=== PATIENT | female | born 1955 | race Caucasian/White ===

== ENCOUNTER 2017-09-20 08:19 | Day surgery (SDC) | payer BC ==
[2017-09-19 17:09] VITALS: BMI 23.0
[2017-09-20] MEDS ORDERED: BUPIVACAINE HCL/PF 0.5% (5MG/ML) 10 ML VIAL ONE (12:13)
[2017-09-20] MEDS ORDERED: DEXAMETHASONE SOD PHOSPHATE 4 MG/1 ML VIAL ONE (12:13)
[2017-09-20] MEDS ORDERED: LIDOCAINE HCL 1%, 10 MG/ML (20ML VIAL) ONE (12:13)
[2017-09-20] MEDS ORDERED: MIDAZOLAM HCL 2 MG/2 ML SINGLE DOSE VIAL ONE ×2 (12:49)
[2017-09-20] MEDS ORDERED: PROPOFOL 20 ML ONE ×2 (12:56→12:59)
[2017-09-20] MEDS ORDERED: ceFAZolin SODIUM 1 GM VIAL IVPB ONE (12:57)
[2017-09-20] MEDS ORDERED: LIDOCAINE HCL 1%, 10 MG/ML (20ML VIAL) NR ONE (13:07)
[2017-09-20] MEDS ORDERED: BUPIVACAINE HCL/PF 0.5% (5MG/ML) 10 ML VIAL IJ ONE ×2 (13:07→14:18)
[2017-09-20] MEDS ORDERED: BACITRACIN 50,000 UNITS VIAL TP ONE (13:50)
[2017-09-20] MEDS ORDERED: DEXAMETHASONE SOD PHOSPHATE 4 MG/1 ML VIAL IM ONE (14:18)
[2017-09-20 15:16] VITALS: TEMP 98.2
[2017-09-20 16:07] VITALS: BP 125/69; PULSE 56
--- NOTE | 2017-09-20 17:21 | OP ---
DATE OF OPERATION: 09/20/2017 PROCEDURE: Left foot Minor bunionectomy. PREOPERATIVE DIAGNOSIS: Hallux valgus, left foot. POSTOPERATIVE DIAGNOSIS: Hallux valgus, left foot. ANESTHESIA: Local, IV sedation. SURGEON: Vicenta Cameron DPM STEAMTABLE WORKER: HEMOSTASIS: Pneumatic left ankle tourniquet. ESTIMATED BLOOD LOSS: 10 mL MATERIALS: Vicryl 3-0, Vicryl 4-0, Vicryl 5-0, nylon 4-0. PATHOLOGY: Bone. DESCRIPTION OF PROCEDURE: The patient was brought to the operating room and placed on the operating room table in the supine position. Pneumatic ankle tourniquet was then placed on the patient's left ankle. Following IV sedation, local anesthesia was obtained utilizing 20 mL 1:1 mixture of 1% lidocaine plain and 0.5% Marcaine plain. The foot was then scrubbed, prepped, and draped in the usual aseptic manner. An Esmarch bandage was then utilized to exsanguinate the patient's left foot, and the tourniquet was inflated. Attention was then directed to the dorsal aspect of the 1st metatarsal head of the left foot, where a 4-cm linear longitudinal incision was made medial and parallel to the tendon and its tensor hallucis longus tendon. The incision was then deepened through subcutaneous tissue using sharp and blunt dissection. Care was taken to identify and retract all vital neural and vascular structures. All bleeders were ligated and cauterized as necessary. At this time, an inverted L-type capsulotomy was performed over the dorsal aspect of the 1st metatarsophalangeal joint. The periosteal and capsular structures were then carefully dissected free and reflected medially and laterally, exposing the head of the 1st metatarsal. Utilizing a sagittal saw, the dorsal and medial prominences were resected and passed from the operative field. The hip was then externally rotated and the knee flexed so that the medial surface of the foot faced superior for better visualization for the Minor procedure. A ullwaud-ojh-ogzmign V-type osteotomy was then created utilizing a sagittal bone saw. The apex pointing distally with the dorsal arm longer than the plantar arm to accommodate fixation. The capital fragment was then shifted laterally into an improved position, was impacted on the head of the metatarsal shaft. A 0.045-inch K-wire was then driven across the osteotomy site to provide temporary fixation. The remaining medial bone at this time a 2.4 x 16-mm K-wire was inserted in the AO technique across the osteotomy site, and another 2.4 x 16-mm K-wire was inserted across the osteotomy site in the AO technique. The remaining medial bone trough as well as all rough edges of bone were resected and smoothed using power equipment, and bunion deformity was noted to be vastly improved. The wound was then flushed with copious amounts of sterile saline. Attention was then directed to the 2nd digit where a longitudinal, teardrop incision was made over the dorsal aspect of the proximal interphalangeal joint of the 2nd digit. The incision was then deepened through the subcutaneous tissue with care to retract all neurovascular structures. All bleeders were ligated and cauterized as necessary. A transverse tenotomy and capsulotomy were performed to the proximal interphalangeal joint of the 2nd digit of the left foot. The head of the proximal phalanx was then freed of all soft tissue attachments and resected utilizing a sagittal bone saw in a transverse resection. The proximal phalanx head was then passed from the operative field and was sent to Pathology. Attention was then directed to the 3rd digit where a 2-cm dorsal, teardrop, longitudinal incision was made over the dorsal aspect of the proximal interphalangeal joint of the 3rd digit. The incision was then deepened through the subcutaneous tissue with care to retract all neurovascular structures. All bleeders were cauterized and ligated. A transverse tenotomy and capsulotomy were performed to the proximal interphalangeal joint of the 3rd digit of the left foot. The head of the proximal phalanx was then resected in a transverse fashion utilizing a sagittal saw and taken from the operative field and sent to Pathology. Attention was then directed to the 4th digit of the left foot where a 2-cm teardrop, longitudinal incision was made over the dorsal aspect of the proximal interphalangeal joint of the digit. Incision was deepened through the subcutaneous tissue with care to retract all neurovascular structures. All bleeders were cauterized and ligated. A transverse tenotomy and capsulotomy were performed to the proximal interphalangeal joint of the 4th digit of the left foot. Head of the proximal phalanx was then freed of all soft tissue attachments and resected in a transverse fashion utilizing sagittal saw and sent to Pathology along with all skin pieces from the teardrop incisions. Attention was then directed to the 5th digit where a 2-cm teardrop, longitudinal incision in a dorsal lateral fashion from proximal lateral to distal medial was made. Over the dorsal aspect of the 5th proximal interphalangeal joint, the incision was then deepened through the subcutaneous tissue with care to retract all neurovascular structures. All bleeders were cauterized and ligated as necessary. A transverse tenotomy and capsulotomy were performed to the proximal interphalangeal joint of the 5th digit of the left foot. At this time, resection of the head of the proximal phalanx was used utilizing the sagittal saw and hemiphalangectomy was performed at the proximal interphalangeal joint of the 5th digit, and all bone and skin were sent to Pathology. At this time, all extensor tendons of toes 2, 3, 4, and 5 were reapproximated using 3-0 Vicryl simple suture stitch. Attention was directed to the dorsal aspect of the incision of the medial 1st metatarsal where capsular structures and periosteal structures were reapproximated using 3-0 Vicryl. Subcutaneous tissue was then closed with 4-0 Vicryl, and the skin edges were coapted using 5-0 Vicryl in a subcuticular suture fashion. Steri-Strips were placed. Second, third, fourth, and fifth digits' skin was reapproximated using 4-0 nylon. All surgical sites were flushed with copious amounts of sterile saline. Upon completion of the procedure, a total of 10 mL of 8:2 mixture of 0.5 Marcaine and Decadron was infiltrated around the surgical sites. The incisions were dressed with Betadine-soaked Adaptic and covered with sterile compressive dressing such as 4 x 4's and Shukri. Tourniquet was then deflated, and immediate hyperemia returned to all digits. The left foot was then wrapped with an Tommy. The patient tolerated the procedure well and was transferred to the recovery room with all vital signs stable and vascular status intact to the left foot. TELMA Shields/[id number]
--- NOTE | 2017-09-24 16:56 | PATH ---
Surgical Pathology Report Patient Name: RONIT LE [facility]. Rec. #: [id number] /Age/Gender: 1955 (Age: 62) / F Account: [id number] Location: [facility] Taken: 09/20/2017 Received: 09/21/2017 Reported: 09/24/2017 Physicians: TELMA Cronin DPM Specimen(s) Received A: 1 ST METATARSAL LEFT FOOT B: 2ND TOE METATARSAL LEFT FOOT C: SKIN OF 2ND, 3RD, 4TH, 5TH TOE LEFT FOOT D: 5TH METATARSAL LEFT FOOT E: 3RD METATARSAL LEFT FOOT F: 4TH METATARSALLEFT FOOT Clinical History Left foot bunions, hammertoes Final Diagnosis A. FOOT, LEFT, BONE, FIRST METATARSAL, PRAKASH BUNIONECTOMY AND ARTHROPLASTY: BONE WITH DEGENERATIVE CHANGES AND DENSE FIBROCONNECTIVE TISSUE. B. FOOT, LEFT, BONE, SECOND TOE, PRAKASH BUNIONECTOMY AND ARTHROPLASTY: BONE WITH DEGENERATIVE CHANGES. C. FOOT, LEFT, SKIN, SECOND, THIRD, FOURTH, FIFTH TOES, EXCISION: SKIN WITHOUT SIGNIFICANT PATHOLOGIC FINDINGS. D. FOOT, LEFT, BONE, FIFTH TOE, PRAKASH BUNIONECTOMY AND ARTHROPLASTY: BONE WITH DEGENERATIVE CHANGES AND DENSE FIBROCONNECTIVE TISSUE. E. FOOT, LEFT, BONE, THIRD TOE, PRAKASH BUNIONECTOMY AND ARTHROPLASTY: BONE WITH DEGENERATIVE CHANGES. F. FOOT, LEFT, BONE, FOURTH TOE, PRAKASH BUNIONECTOMY AND ARTHROPLASTY: BONE WITH DEGENERATIVE CHANGES AND DENSE FIBROCONNECTIVE TISSUE. Electronically Signed Cherelle Howard M.D. Gross Description A. Received in formalin labeled "bone first metatarsal left foot," is a 3.5 x 2.1 x 0.3 cm aggregate of welch bone and soft tissue fragments. A veterans contact representative portion is submitted in one cassette, following decalcification. B. Received in formalin labeled "bone second toe left foot," is a 1.5 x 0.6 x 0.5 cm welch portion of bone. The specimen is bisected and entirely submitted in one cassette, following decalcification. C. Received in formalin labeled "skin second, third, fourth, fifth toes left foot," are 4 welch, undesignated and unoriented skin shaves ranging from 1.3 x 0.5 cm to 1.7 x 0.7 cm. The epidermal surfaces are unremarkable. Databases Computer Consultant sections are submitted in one cassette. D. Received in formalin labeled "bone fifth toe left foot," is a 0.7 x 0.7 x 0.2 cm welch portion of bone. The specimen is trisected and entirely submitted in one cassette, following decalcification. E. Received in formalin labeled "bone third toe left foot," is a 1.2 x 0.6 x 0.5 cm welch portion of bone. The specimen is bisected and entirely submitted in one cassette, following decalcification. F. Received in formalin labeled "bone fourth toe left foot," is a 0.9 x 0.5 x 0.4 cm welch portion of bone. The specimen is bisected and entirely submitted in one cassette, following decalcification. 09/21/201709/21/2017
== END 2017-09-20 17:15 | disposition home or self-care (01) ==
LOC: JASU-SURG 08:19
PROVIDERS: ATTEND Podiatrist Foot Surgery
PROC: 0QSP04Z Reposition Left Metatarsal with Internal Fixation Device, Open Approach (ICD-10-PCS; principal; 2017-09-20 10:00)
DX: M20.12 Hallux valgus (acquired), left foot (principal)
CPT/HCPCS: 73630-TC-LT; 88304-TC; 88311-TC; 94760

== ENCOUNTER 2022-06-16 04:14 | Day surgery (SDC) | payer OTHER, BC ==
[2022-06-14 18:45] VITALS: BMI 22.3
[2022-06-16] MEDS ORDERED: DEXAMETHASONE SOD PHOSPHATE 4 MG/1 ML VIAL ONE (08:05)
[2022-06-16] MEDS ORDERED: DEXAMETHASONE SOD PHOSPHATE 10 MG/1 ML VIAL ONE (08:06)
[2022-06-16] MEDS ORDERED: LIDOCAINE HCL/PF 1% SDV 5ML VIAL ONE (08:06)
[2022-06-16] MEDS ORDERED: ACETAMINOPHEN 500 MG TABLET (FP) PO PRN (09:47)
[2022-06-16] MEDS ORDERED: LIDOCAINE HCL 1% PRESERVATIVE FREE - 30ML VIAL IJ ONE (16:16)
[2022-06-16] MEDS ORDERED: IOHEXOL 180 MG/1 ML ML IJ ONE (16:17)
[2022-06-16] MEDS ORDERED: DEXAMETHASONE SOD PHOSPHATE 10 MG/1 ML VIAL IVPUSH ONE (16:19)
[2022-06-16 18:42] VITALS: RESP 17
[2022-06-16 18:44] VITALS: BP 136/70; PULSE 64; TEMP 98.2
== END 2022-06-16 17:00 | disposition home or self-care (01) ==
LOC: JASU-SURG 04:14
PROVIDERS: ATTEND Pain Medicine Pain Medicine
PROC: 3E0R3BZ Introduction of Anesthetic Agent into Spinal Canal, Percutaneous Approach (ICD-10-PCS; 2022-06-16)
PROC: 3E0R33Z Introduction of Anti-inflammatory into Spinal Canal, Percutaneous Approach (ICD-10-PCS; principal; 2022-06-16 16:30)
DX: M47.812 Spondylosis without myelopathy or radiculopathy, cervical region (principal)
CPT/HCPCS: 76000-TC-FY; J1100

== ENCOUNTER 2022-08-11 04:00 | Day surgery (SDC) | payer OTHER, BC ==
[2022-08-09 13:24] VITALS: BMI 22.1
[~2022-08-11 04:00] MED LIST: BUPIVACAINE HCL/PF 0.5% (5 MG/ML) 30 ML VIAL IJ ONE
[2022-08-11] MEDS ORDERED: LIDOCAINE HCL/PF 1% SDV 5ML VIAL ONE (07:30)
[2022-08-11] MEDS ORDERED: DEXAMETHASONE SOD PHOSPHATE 10 MG/1 ML VIAL ONE (07:30)
[2022-08-11] MEDS ORDERED: ACETAMINOPHEN 500 MG TABLET (FP) PO PRN (08:48)
[2022-08-11 10:30] VITALS: RESP 20; TEMP 97.1
[2022-08-11] MEDS ORDERED: IOHEXOL 180 MG/1 ML ML IJ ONE (12:58)
[2022-08-11] MEDS ORDERED: LIDOCAINE HCL 1% PRESERVATIVE FREE - 30ML VIAL IJ ONE (12:59)
[2022-08-11] MEDS ORDERED: DEXAMETHASONE SOD PHOSPHATE 10 MG/1 ML VIAL IM ONE (12:59)
[2022-08-11 13:18] VITALS: BP 143/79; PULSE 56
== END 2022-08-11 13:42 | disposition home or self-care (01) ==
LOC: JASU-SURG 04:00
PROVIDERS: ATTEND Pain Medicine Pain Medicine
PROC: 3E0R33Z Introduction of Anti-inflammatory into Spinal Canal, Percutaneous Approach (ICD-10-PCS; principal; 2022-08-11 12:15)
DX: M54.12 Radiculopathy, cervical region (principal)
CPT/HCPCS: 76000-TC-FY; J1100

== ENCOUNTER 2023-11-21 04:27 | Day surgery (SDC) | payer OTHER, BC ==
[2023-11-16 14:50] VITALS: BMI 23.1
[2023-11-21] MEDS ORDERED: PHENYLEPHRINE 2.5% OPTHALMIC DROP 2ML BOTTLE ONE (06:35)
[2023-11-21] MEDS ORDERED: KETOROLAC TROMETHAMINE 0.5% EYE DROP 1 DROP DROPS ONE (06:35)
[2023-11-21] MEDS ORDERED: CYCLOPENTOLATE HCL 1% OPHTH SOLN 2 ML BOTTLE ONE (06:35)
[2023-11-21] MEDS ORDERED: TROPICAMIDE 1% OPHTH SOLN 15 ML BOTTLE ONE (06:35)
[2023-11-21] MEDS ORDERED: OFLOXACIN 0.3% OPHTHALMIC SOLUTION 5 ML BOTTLE ONE (06:35)
[2023-11-21] MEDS: TROPICAMIDE 1% OPHTH SOLN 15 ML BOTTLE OP SCH (06:53)
[2023-11-21] MEDS: PHENYLEPHRINE 2.5% OPHTH SOLN 15 ML BOTTLE OP SCH (06:54)
[2023-11-21] MEDS: OFLOXACIN 0.3% OPHTHALMIC SOLUTION 5 ML BOTTLE OP SCH (06:54)
[2023-11-21] MEDS: KETOROLAC TROMETHAMINE 0.5% EYE DROP 1 DROP DROPS OP SCH (06:54)
[2023-11-21] MEDS: CYCLOPENTOLATE HCL 1% OPHTH SOLN 2 ML BOTTLE OP SCH (06:55)
[2023-11-21] MEDS ORDERED: EPINEPHrine/PF 1 MG/1 ML (1:1,000) AMPULE ONE (07:16)
[2023-11-21] MEDS ORDERED: BSS (NA/CA/MG/K) BALANCED SALT SOLUTION OPHTH SOLN 15 ML BOTTLE ONE (07:16)
[2023-11-21] MEDS ORDERED: POVIDONE-IODINE 5% OPHTHALMIC PREP 30 ML SOLUTION ONE (07:16)
[2023-11-21] MEDS ORDERED: LIDOCAINE HCL/PF 1% SDV 5ML VIAL ONE (07:16)
[2023-11-21] MEDS ORDERED: TETRACAINE 0.5% OPHTH SOLN 2 ML BOTTLE ONE (07:16)
[2023-11-21] MEDS ORDERED: VANCOMYCIN 500 MG VIAL (RESTRICTED TO ID ONLY) ONE (07:16)
[2023-11-21] MEDS ORDERED: MIDAZOLAM HCL 2 MG/2 ML SINGLE DOSE VIAL ONE (08:03)
[2023-11-21] MEDS: TETRACAINE 0.5% OPHTH SOLN 2 ML BOTTLE OS ONE ×2 (08:10)
[2023-11-21] MEDS: POVIDONE-IODINE 5% OPHTHALMIC PREP 30 ML SOLUTION OS ONE ×2 (08:11)
[2023-11-21] MEDS: LIDOCAINE HCL 1% PRESERVATIVE FREE - 30ML VIAL IJ ONE ×2 (08:16)
[2023-11-21] MEDS: BSS (NA/CA/MG/K) BALANCED SALT SOLUTION OPHTH SOLN 15 ML BOTTLE IO ONE ×2 (08:20)
[2023-11-21] MEDS: CHONDROITIN SU A/HYALUR SOD 1 KIT IO ONE ×2 (08:21)
[2023-11-21] MEDS: EPINEPHrine 1:1,000 1,000 MCG/ML ML SQ ONE ×2 (08:31)
[2023-11-21] MEDS: VANCOMYCIN 500 MG VIAL (RESTRICTED TO ID ONLY) IVPB ONE ×2 (08:37)
[2023-11-21 08:54] VITALS: RESP 18
[2023-11-21] MEDS ORDERED: ACETAMINOPHEN 325 MG TABLET (FP) ONE (09:04)
[2023-11-21] MEDS: ACETAMINOPHEN 325 MG TABLET (FP) PO PRN (09:06)
[2023-11-21 09:47] VITALS: BP 152/62; PULSE 64; TEMP 97.2
== END 2023-11-21 10:45 | disposition home or self-care (01) ==
LOC: JASU-SURG 04:27
PROVIDERS: ATTEND Ophthalmology
PROC: 08RK3JZ Replacement of Left Lens with Synthetic Substitute, Percutaneous Approach (ICD-10-PCS; principal; 2023-11-21 08:00)
DX: H26.9 Unspecified cataract (principal)
CPT/HCPCS: 66984; V2632

== ENCOUNTER 2023-12-26 04:34 | Day surgery (SDC) | payer OTHER, BC ==
[2023-12-21 14:33] VITALS: BMI 23.1
[2023-12-26] MEDS ORDERED: TROPICAMIDE 1% OPHTH SOLN 15 ML BOTTLE ONE (06:09)
[2023-12-26] MEDS ORDERED: OFLOXACIN 0.3% OPHTHALMIC SOLUTION 5 ML BOTTLE ONE (06:09)
[2023-12-26] MEDS ORDERED: PHENYLEPHRINE 2.5% OPTHALMIC DROP 2ML BOTTLE ONE (06:09)
[2023-12-26] MEDS ORDERED: KETOROLAC TROMETHAMINE 0.5% EYE DROP 1 DROP DROPS ONE (06:09)
[2023-12-26] MEDS ORDERED: CYCLOPENTOLATE HCL 1% OPHTH SOLN 2 ML BOTTLE ONE (06:09)
[2023-12-26 06:18] VITALS: RESP 16
[2023-12-26] MEDS: OFLOXACIN 0.3% OPHTHALMIC SOLUTION 5 ML BOTTLE OP SCH (06:30)
[2023-12-26] MEDS: CYCLOPENTOLATE HCL 1% OPHTH SOLN 2 ML BOTTLE OP SCH (06:30)
[2023-12-26] MEDS: PHENYLEPHRINE 2.5% OPHTH SOLN 15 ML BOTTLE OP SCH (06:30)
[2023-12-26] MEDS: KETOROLAC TROMETHAMINE 0.5% EYE DROP 1 DROP DROPS OP SCH (06:30)
[2023-12-26] MEDS: TROPICAMIDE 1% OPHTH SOLN 15 ML BOTTLE OP SCH (06:30)
[2023-12-26] MEDS ORDERED: TETRACAINE 0.5% OPHTH SOLN 2 ML BOTTLE ONE (07:24)
[2023-12-26] MEDS ORDERED: BSS (NA/CA/MG/K) BALANCED SALT SOLUTION OPHTH SOLN 15 ML BOTTLE ONE (07:24)
[2023-12-26] MEDS ORDERED: EPINEPHrine/PF 1 MG/1 ML (1:1,000) AMPULE ONE (07:24)
[2023-12-26] MEDS ORDERED: LIDOCAINE HCL/PF 1% SDV 5ML VIAL ONE (07:24)
[2023-12-26] MEDS ORDERED: VANCOMYCIN 500 MG VIAL (RESTRICTED TO ID ONLY) ONE (07:24)
[2023-12-26] MEDS ORDERED: MIDAZOLAM HCL 2 MG/2 ML SINGLE DOSE VIAL ONE (07:30)
[2023-12-26] MEDS ORDERED: ONDANSETRON 4 MG/2 ML VIAL ONE (07:30)
[2023-12-26] MEDS ORDERED: DEXMEDETOMIDINE HCL 200 MCG/2 ML IVPB ONE (07:32)
[2023-12-26] MEDS: TETRACAINE 0.5% OPHTH SOLN 2 ML BOTTLE OD ONE ×2 (08:01)
[2023-12-26] MEDS ORDERED: SODIUM CHLORIDE 0.9% P/F 10 ML VIAL IJ ONE (08:03)
[2023-12-26] MEDS: POVIDONE-IODINE 5% OPHTHALMIC PREP 30 ML SOLUTION OD ONE ×2 (08:06)
[2023-12-26] MEDS: LIDOCAINE HCL 1% PRESERVATIVE FREE - 30ML VIAL IO ONE ×2 (08:09)
[2023-12-26] MEDS: BSS (NA/CA/MG/K) BALANCED SALT SOLUTION OPHTH SOLN 15 ML BOTTLE OD ONE ×2 (08:15)
[2023-12-26] MEDS: CHONDROITIN SU A/HYALUR SOD 1 KIT IO ONE ×2 (08:17)
[2023-12-26] MEDS: EPINEPHrine 1:1,000 1,000 MCG/ML ML SQ ONE ×2 (08:31)
[2023-12-26] MEDS: VANCOMYCIN 500 MG VIAL (RESTRICTED TO ID ONLY) IVPB ONE ×2 (08:32)
[2023-12-26 09:19] VITALS: BP 135/77; PULSE 64; TEMP 97.1
[2023-12-26] MEDS ORDERED: ACETAMINOPHEN 325 MG TABLET (FP) ONE (09:23)
[2023-12-26] MEDS: ACETAMINOPHEN 325 MG TABLET (FP) PO PRN (09:27)
== END 2023-12-26 10:28 | disposition home or self-care (01) ==
LOC: JASU-SURG 04:34
PROVIDERS: ATTEND Ophthalmology
PROC: 08RJ3JZ Replacement of Right Lens with Synthetic Substitute, Percutaneous Approach (ICD-10-PCS; principal; 2023-12-26 08:00)
DX: H26.9 Unspecified cataract (principal)
CPT/HCPCS: 66984; V2632